=== PATIENT | female | born 1955 | race Caucasian/White ===

== ENCOUNTER 2017-07-25 19:36 | Emergency (ER) | payer OTHER ==
[~2017-07-25] VITALS: Ht 162.6 cm; Wt 78.6 kg
[~2017-07-25 19:36] MED LIST: CALCIUM 600 +1 EAC2 PO; DAILY VITAMIN1 EAC8 PO; FISH OIL 1,2001 EAC4 PO; FLEXERIL5 MG PO; LO-DOSE ASPIRIN81 M1 PO; LOPRESSOR25 MG PO; PERCOCET 5/31 TABLET PO; PRAVASTATIN SOD20 MG PO; RAMIPRIL5 MG PO; TYLENOL ARTHRI650 MG PO
[2017-07-25 20:30] LABS: COLOR ORANGE ((YELLOW))
[2017-07-25 20:31] LABS: APPEARANCE SL.HAZY ((CLEAR)); BLOOD MODERATE; GLUCOSE (STRIP) NEGATIVE
[2017-07-25 20:41] LABS: HEMATOCRIT 38.8 % (36.0-46.0); HEMOGLOBIN 13.6 G/DL (11.9-15.5); MCH 30.1 PG (29.0-34.0); MCHC 35.1 G/DL (30.0-36.0); MCV 85.8 FL (83-99); PLATELET COUNT 215 K/uL (156-360); RBC DIS.WIDTH-CV 13.4 % (11.8-14.6); RBC DIS.WIDTH-SD 41.9 % (39-53); RED BLOOD COUNT 4.52 M/uL (3.80-5.20); WHITE BLOOD COUNT 8.3 K/uL (4.1-10.2)
[2017-07-25 20:44] LABS: BACTERIA RARE /HPF; CALCIUM OXALATE CRYSTALS 3+ /HPF; EPITHELIAL CELLS RARE /HPF; MUCUS NONE SEEN /LPF; UCUL ADDED? NO; WHITE BLOOD CELLS 0-5 /HPF (0-5)
[2017-07-25 20:48] LABS: ALBUMIN 4.6 g/dL (3.2-4.8)
[2017-07-25 20:49] LABS: CHLORIDE 105 mEq/L (99-109); POTASSIUM 3.4 mEq/L (3.7-5.4); SODIUM 139 mEq/L (136-147)
[2017-07-25 20:51] LABS: GLUCOSE 137 mg/dL (70-99); TOTAL PROTEIN 7.3 g/dL (6.4-8.3)
[2017-07-25 20:53] LABS: TOTAL BILIRUBIN 0.7 mg/dL (0.0-1.0)
[2017-07-25 20:54] LABS: ALKALINE PHOSPHATASE 77 IU/L (3-129); CREATININE 0.8 mg/dL (0.6-1.3); GFR ESTIMATE (CALCULATED) > 59 mL/min/
[2017-07-25 20:56] LABS: AST (GOT) 29 IU/L (2-34); UREA NITROGEN (BUN) 16 mg/dL (9-23)
[2017-07-25 20:57] LABS: ALT (GPT) 30 IU/L (3-49)
[2017-07-25] MEDS ORDERED: MOTRIN800 MG PO (21:59)
[2017-07-25] MEDS ORDERED: ZOFRAN4 MG PO (21:59)
[2017-07-25] MEDS ORDERED: NORCO 5/3251 TABLET PO (21:59)
[2017-07-25 23:05] VITALS: BP 113/72
== END 2017-07-25 23:06 | disposition home or self-care (01) ==
LOC: EME 19:36
PROVIDERS: Nurse Practitioner Family
DX: N20.1 Calculus of ureter (principal); M54.5 Low back pain; R31.9 Hematuria, unspecified; R63.4 Abnormal weight loss; N21.0 Calculus in bladder; Z87.440 Personal history of urinary (tract) infections; Z87.442 Personal history of urinary calculi; I10 Essential (primary) hypertension; E78.5 Hyperlipidemia, unspecified; Z95.5 Presence of coronary angioplasty implant and graft; Z79.82 Long term (current) use of aspirin; Z68.29 Body mass index [BMI] 29.0-29.9, adult
CPT/HCPCS: 74177; 80053; 81003; 83605; 85027; 87040; 99281; 99284; J1885; J2060; J2270; J7030